=== PATIENT | female | born 1995 | race Caucasian/White ===

== ENCOUNTER 2017-05-19 15:31 | Emergency (ER) | payer SELFPAY ==
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
== END 2017-05-19 16:27 | disposition home or self-care (01) ==
LOC: ER 15:31
DX: S01.511A Laceration without foreign body of lip, initial encounter (principal); S02.5XXA Fracture of tooth (traumatic), initial encounter for closed fracture; W22.8XXA Striking against or struck by other objects, initial encounter
CPT/HCPCS: 99282

== ENCOUNTER 2017-06-16 17:42 | Emergency (ER) | payer SELFPAY ==
[2017-06-16] MEDS ORDERED: PROPARACAINE HCL OPTH 15ML BTL OPTH ONE (17:55)
--- NOTE | 2017-06-16 17:59 | Emergency Department Record ---
History of Present Illness - General Chief complaint: Eye Problem Stated complaint: LT EYE SCRATCHED Time Seen by Provider: 06/16/17 17:55 Source: Patient Mode of Arrival: Ambulatory Limitations: No limitations - History of Present Illness Initial comments: The patient is here due to L eye pain for 2 hours. Her accidentally scratched her L eye with his fingernail when they were playing. The L eye has become progressively more painful. She is having some blurred vision but is having trouble keeping the L eye open. The patient is not sure if her Td is UTD. MD chief complaint: Eye pain Onset/Timin -: Hour(s) Onset Description: Sudden Location: Left eye Place: Home If Injury: Direct trauma Eye Symptoms: Burning, Pain Severity: Moderate Severity scale (1-10): 7 If Pain, Quality: Burning Consistency: Constant, Getting worse Context: Trauma Associated Symptoms: None Treatments Prior to Arrival: None - Related Data Patient Tetanus UTD (within 5 yrs): No Home Medications Medication Instructions Recorded Confirmed Last Taken No Home Med [NO HOME MEDS] 06/16/17 06/16/17 Unknown Allergies Allergy/AdvReac Type Severity Reaction Status Date / Time No Known Drug Allergies Allergy Verified 06/16/17 17:47 Travel Screening - Travel/Exposure Within Last 30 Days Have you traveled within the last 30 days?: No - Travel/Exposure Within Last Year Have you traveled outside the [place] in the last year?: No - Additonal Travel Details Have you been exposed to anyone with a communicable illness?: No - Travel Symptoms Symptom Screening: None Review of Systems Constitutional: Denies: Chills, Fever Eyes: Denies: Eye discharge ENT: Denies: Congestion Respiratory: Denies: Cough, Dyspnea Past Medical History - SOCIAL HISTORY Smoking Status: Current every day smoker Alcohol Use: Occasional Drug Use: None - RESPIRATORY Hx Respiratory Disorders: No - CARDIOVASCULAR Hx Cardio Disorders: Yes Comment:: tachycardia - NEURO Hx Neuro Disorders: No - GI Hx GI Disorders: Yes Hx Reflux: Yes - Hx Genitourinary Disorders: No - ENDOCRINE Hx Endocrine Disorders: No - MUSCULOSKELETAL Hx Musculoskeletal Disorders: No - PSYCH Hx Psych Problems: No - HEMATOLOGY/ONCOLOGY Hx Hematology/Oncology Disorders: No Family Medical History Any Significant Family History?: Yes Hx Cancer: Grandparents Hx Depression: Father Hx Diabetes: Grandparents Hx Heart Disease: Father, Brother/Sister, Grandparents Physical Exam - General General Appearance: Alert, Cooperative, No acute distress - Head Head exam: Atraumatic, Normocephalic, Normal inspection - Eye Eye exam: Normal appearance, PERRL, Conjunctival injection (Mild L eye.), EOMI, Other (There is a small abrasion to the L cornea with Flourescein staining.). negative: Periorbital swelling, Periorbital tenderness Visual acuity (L) = 20/: 20 Visual acuity (R) = 20/: 20 Image of Eyes: 1 - Small abrasion. - ENT ENT exam: Normal exam, Mucous membranes moist, Normal external ear exam, Normal orophraynx - Neck Neck exam: Normal inspection, Full ROM. negative: Tenderness Course Vital Signs 06/16/17 17:48 Temperature 98.5 F Pulse Rate 82 Respiratory 18 Rate Blood Pressure 134/96 Pulse Ox 98 - Reevaluation(s) Reevaluation #1: I did explain to the patient that there is a small abrasion to the L eye. We will prescribe her Emycin Opth. Ointment for 3-5 days. 06/16/17 18:10 Reevaluation #2: I did offer the patient an Td shot but she is refusing. She states she would like to go to the health dept because it would be free. I explained to her that she really needs to get it in the next 3 days. 06/16/17 18:20 Disposition Disposition: Discharge Clinical Impression: Corneal abrasion Qualifiers: Encounter type: initial encounter Laterality: left Qualified Code(s): S05.02XA - Injury of conjunctiva and corneal abrasion without foreign body, left eye, initial encounter Disposition: Home, Self-Care Condition: (1) Good Instructions: Corneal Abrasion (ED) Additional Instructions: Keep the eyes closed when possible and use the Emycin ointment in the L eye 4 times a day for 5 days. Please return to the ER or see an eye doctor if not significantly better in 2 days. Forms: Patient Portal Access Time of Disposition: 18:12 Quality - Quality Measures Quality Measures: N/A - Blood Pressure Screening View Details: Yes Does Patient Have Any of the Following: No Blood Pressure Classification: Hypertensive Reading Systolic Measurement: 134 Diastolic Measurement: 96 Screening for High Blood Pressure: < Pre-Hypertensive BP, F/U Documented > [ G8950] Pre-Hypertensive Follow-up Interventions: Referral to alternative/primary care provider.
[2017-06-16] MEDS ORDERED: ERYTHROMYCIN OPTH OINT 3.5GM OPTH ONE (18:09)
== END 2017-06-16 18:12 | disposition home or self-care (01) ==
LOC: ER 17:42
DX: S05.02XA Injury of conjunctiva and corneal abrasion without foreign body, left eye, initial encounter (principal); W50.4XXA Accidental scratch by another person, initial encounter; Y92.009 Unspecified place in unspecified non-institutional (private) residence as the place of occurrence of the external cause
CPT/HCPCS: 99282